=== PATIENT | male | born 1995 | race African-American/Black ===

== ENCOUNTER 2018-03-07 11:45 | Day surgery (SDC) | payer OTHER ==
[~2018-03-07 11:45] MED LIST: CEFAZOLIN 1 GM/50 ML (PMX) 50 ML IVPB
[2018-03-07] MEDS ORDERED: SUCCINYLCHOLINE CHLORIDE 100 MG/5 ML SYG IV (14:44)
[2018-03-07] MEDS ORDERED: ROCURONIUM 50 MG INJ (14:44)
[2018-03-07] MEDS ORDERED: LIDOCAINE 100 MG SYRINGE (14:44)
[2018-03-07] MEDS ORDERED: PROPOFOL 20 ML (14:44)
[2018-03-07] MEDS ORDERED: CEFAZOLIN 1 GM INJ (14:44)
[2018-03-07] MEDS ORDERED: OXYMETAZOLINE 0.05% 15 ML NAS SPRAY NASAL (14:45)
[2018-03-07] MEDS: LIDOCAINE 1%/EPI (1:100,000) (MDV) 20 ML (15:26)
[2018-03-07] MEDS: SALINE 0.65% NAS 14.1 GM TUBE NASAL (15:26)
[2018-03-07] MEDS ORDERED: ONDANSETRON 4 MG INJ (15:28)
[2018-03-07] MEDS ORDERED: NEOSTIGMINE 3 MG/3 ML SYRINGE ×2 (15:56→16:00)
[2018-03-07] MEDS ORDERED: GLYCOPYRROLATE 0.4 MG INJ (15:56)
[2018-03-07] MEDS ORDERED: BACITRACIN 0.5%/ZINC 28.35 GM OINT TOP (16:05)
[2018-03-07] MEDS: BACITRACIN 0.9 GM OINT (16:09)
[2018-03-07] MEDS ORDERED: MEPERIDINE 25 MG INJ IV (16:30)
[2018-03-07] MEDS ORDERED: ONDANSETRON 4 MG INJ IV (16:30)
[2018-03-07] MEDS ORDERED: OXYCODONE/ACETAMINOPHEN (5/325) TAB PO ×2 (16:30)
[2018-03-07] MEDS ORDERED: HYDROmorphONE 1 MG/5 ML IV SYRINGE IV ×3 (16:30)
[2018-03-07] MEDS ORDERED: MIDAZOLAM 1 MG/ML 2 ML INJ IV (16:30)
[2018-03-07] MEDS ORDERED: DIPHENHYDRAMINE 50 MG INJ IV (16:30)
[2018-03-07] MEDS ORDERED: METOCLOPRAMIDE 10 MG INJ IV (16:30)
[2018-03-07] MEDS ORDERED: FENTAnyl 50 MCG/ML VIAL IV ×2 (16:30)
[2018-03-07] MEDS: FENTAnyl 50 MCG/ML VIAL IV ×2 (16:47→16:59)
== END 2018-03-07 18:15 | disposition home or self-care (01) ==
LOC: SDS 11:45
DX: J34.3 Hypertrophy of nasal turbinates (principal); J34.2 Deviated nasal septum
CPT/HCPCS: 30140